=== PATIENT | male | born 1955 | race Caucasian/White ===

== ENCOUNTER 2021-10-15 13:16 | Inpatient (IN) | payer MEDICARE, SELFPAY ==
[2021-10-15] VITALS (17 sets, daily range): BP systolic 97–122; BP diastolic 67–96; PULSE 88–110; RESP 13–29; TEMP 36.6–36.9; O2SAT 93–100; BMI 21.2
--- NOTE | ~2021-10-15 | CT_ITS ---
EXAMINATION: CT brain wo con DATE: 10/15/2021 13:59 INDICATION: Altered mental state. Confusion. History of ethanol abuse. TECHNIQUE: Computed tomography (CT) of the head was performed without intravenous contrast. The mA wa s adjusted according to patient size. Iterative reconstruction technique was employed. Exam dose: 60 5.33 mGy-cm total exam DLP. COMPARISON: None FINDINGS: Bilateral vertebral artery and carotid siphon internal carotid artery calcifications are no shaq. There is mild nonspecific diminished attenuation cerebral white matter, likely due to chronic small v essel ischemic changes. No intracranial mass lesion or hemorrhage or cerebrovascular accident is detected. No midline shift o r mass effect effect. No subdural or epidural hematoma. There is mild mucoperiosteal thickening of the maxillary, frontal and sphenoid sinuses and to a great er extent the ethmoid air cells. No fracture or bone destruction of the cranial vault. IMPRESSION: Cerebral atherosclerosis and chronic small vessel ischemic changes of the cerebral white matter No acute intracranial finding Reviewed, dictated and finalized at [facility]. Reviewed, dictated and finalized at [facility].
--- NOTE | ~2021-10-15 | MR_ITS ---
EXAMINATION: MR brain/brain stem wo/w con DATE: 10/16/2021 15:11 INDICATION: Confusion. Hallucinations. TECHNIQUE: Magnetic resonance imaging (MRI) of the brain and brainstem was performed without and with 12 mL MultiHance intravenous contrast. COMPARISON: Head CT 10/15/2021 FINDINGS: There are scattered areas of nonspecific increased T2-weighted signal intensity in the cere bral white matter and barry. There is no intracranial hemorrhage, acute infarction, or abnormal intrac ranial mass lesion. The ventricles are normal in size. There is mucosal thickening in the paranasal s inuses. The orbits are normal. The mastoid air cells are normal. IMPRESSION: 1. Mild nonspecific cerebral white matter disease and pontine disease, which likely represents chroni c small vessel ischemic disease. Reviewed, dictated and finalized at [facility]. IMPRESSION: 1. Mild nonspecific cerebral white matter disease and pontine disease, which jacklyn ramos represents chronic small vessel ischemic disease.
--- NOTE | 2021-10-15 13:31 | ECG_ITS ---
Measurements Intervals [place] Rate: 99 P: 64 WV: 140 QRS: -44 QRSD: 101 T: 48 QT: 360 QTc: 464 Interpretive Statements SINUS RHYTHM LEFT AXIS DEVIATION [QRS AXIS < -30] NO PREVIOUS ECG AVAILABLE FOR COMPARISON Electronically Signed On 10-15-2021 20:37:14 CDT by Chela Rodriguez M.D.
--- NOTE | 2021-10-15 13:45 | PC.NURSE ---
Dr. Brock at bedside to assess pt.
--- NOTE | 2021-10-15 13:55 | ED.AMS ---
HPI - Altered Mental Status General Chief Complaint: Altered Mental Status Stated Complaint: confusion Time Seen by Provider: 10/15/21 13:38 History of Present Illness HPI narrative: Pt has been missing for a week and arrived home today. Pt thought someone had broken into the house a week ago and went to [facility] and called PD and filed report, no evidence of break in at house. Pt disappeared and has no recollection of where he was except maybe remembering being in a park. Pt still paranoid and thinks he is being pursued. Related Data Allergies Allergy/AdvReac Type Severity Reaction Status Date / Time No Known Allergies Allergy Unverified 01/22/12 18:33 Review of Systems Review of Systems: ROS unobtainable: Yes unobtainable due to mental status Exam Const: General: no acute distress and confusion Nutritional Appearance: well nourished Limitations: altered mental status HENMT: Head: normal to inspection Eyes: Conjunctivae: conjunctivae normal Pupils: Equal, round and reactive pupils present EOM: EOMs intact bilaterally Direct Ophthalmoscopy: no photophobia Neck: Neck: normal visual inspection and no meningeal signs Resp: Effort & Inspection: normal respiratory effort Auscultation: clear to auscultation bilaterally Cardio: Rate: regular rate Rhythm: regular rhythm GI: GI Palp: Yes Soft to palpation Auscultation: normal bowel sounds Skin: General skin exam: normal color Rashes: no rashes Wounds: no wounds Neuro: General: moves all extremities, no meningeal signs and no focal motor deficits Cranial nerves: Yes Nystagmus not present Speech: normal speech Gait exam (Neuro): Normal gait present Other: oreinted to person and place Extrem: General: normal to inspection and no clubbing, cyanosis or edema Psych: Other: calm but somewhat paranoid has no recollection of his whereabouts over last week. Course Vital Signs Vital signs: Vital Signs Temperature 98.4 F 10/15/21 13:20 Pulse Rate 110 H 10/15/21 13:20 Respiratory Rate 20 10/15/21 13:20 Blood Pressure 114/76 10/15/21 13:20 Pulse Oximetry 98 10/15/21 13:20 Oxygen Delivery Room Air 10/15/21 13:20 Temperature 98.4 F 10/15/21 13:20 Pulse Rate 107 H 10/15/21 17:02 Respiratory Rate 17 10/15/21 17:02 Blood Pressure 122/82 10/15/21 16:01 Pulse Oximetry 98 10/15/21 17:02 Oxygen Delivery Room Air 10/15/21 13:20 MDM - Altered Mental Status Lab Data Result diagrams: 10/15/21 13:53 10/15/21 13:53 Labs: Lab Results 10/15/21 10/15/21 10/15/21 Range/Units 13:53 13:53 13:53 WBC 4.3 L (4.5-10.0) K/mm3 RBC 4.86 (4.6-6.20) M/mm3 Hgb 11.1 L (14.0-18.0) g/dL Hct 38.2 L (42.0-52.0) % MCV 78.6 L (80-100) fl MCH 22.8 L (26-34) pg MCHC 29.1 L (32-36) g/dl RDW 24.3 H (11.5-14.5) % Plt Count 262 (150-375) k/mm3 MPV 10.7 H (7.4-10.4) fl Immature Gran % (Auto) 0.5 (0-0.5) % Neut % (Auto) 66.9 (45.5-73.1) % Lymph % (Auto) 18.9 (18.3-44.2) % [place] % (Auto) 11.8 H (2.6-8.5) % Eos % (Auto) 0.7 (0-4.4) % Baso % (Auto) 1.2 (0.2-1.2) % Lymph # (Auto) 0.82 L (0.9-3.2) K/mm3 [place] # (Auto) 0.5 (0.1-0.6) K/mm3 Eos # (Auto) 0.0 (0-0.3) K/mm3 Baso # (Auto) 0.1 (0.0-0.1) K/mm3 Abs Immat Gran (auto) 0.02 (0.00-0.031) K/mm3 Absolute Neuts (auto) 2.9 (1.3-6.7) K/mm3 Absolute Nucleated RBC 0.0 (0.0-0.012) K/mm3 Nucleated RBC % 0.0 (0.0-0.2) % Platelet Estimate Adequate (Adequate) % Immature Plt Fraction 6.7 (0.9-11.2) % Hypochromasia 1+ (NORMAL) Poikilocytosis 1+ (NORMAL) Anisocytosis 1+ (NORMAL) Ovalocytes 1+ (NORMAL) Stomatocytes 1+ (NORMAL) Acanthocytes (Spur) 1+ (NORMAL) PT 13.1 (11.1-14.7) Seconds INR 1.0 APTT 26.1 (22.3-36.8) SECONDS Sodium 141 (137-145) mmol/L Potassium 3.5 (3.4-5.0) mmol/L Chloride
[2021-10-15 14:14] LABS: Basophils Absolute Auto 0.1 K/mm3 (0.0-0.1); Basophils Percent Auto 1.2 % (0.2-1.2); Eosinophils Percent Auto 0.7 % (0-4.4); Hematocrit 38.2 % (42.0-52.0); Hemoglobin 11.1 g/dL (14.0-18.0); Immature Granulocyte Absolute 0.02 K/mm3 (0.00-0.031); Immature Granulocyte Percent A 0.5 % (0-0.5); Immature Platelet Fraction Pct 6.7 % (0.9-11.2); Lymphocytes Absolute Auto 0.82 K/mm3 (0.9-3.2); Lymphocytes Percent Auto 18.9 % (18.3-44.2); Mean Corpuscular HGB Conc 29.1 g/dl (32-36); Mean Corpuscular Hemoglobin 22.8 pg (26-34); Mean Corpuscular Volume 78.6 fl (80-100); Mean Platelet Volume 10.7 fl (7.4-10.4); Monocytes Absolute Auto 0.5 K/mm3 (0.1-0.6); Monocytes Percent Auto 11.8 % (2.6-8.5); Neutrophils Absolute Auto 2.9 K/mm3 (1.3-6.7); Neutrophils Percent Auto 66.9 % (45.5-73.1); Platelet Count Result 262 k/mm3 (150-375); Red Blood Count 4.86 M/mm3 (4.6-6.20); Red Cell Distribution Width 24.3 % (11.5-14.5); White Blood Count 4.3 K/mm3 (4.5-10.0)
--- NOTE | 2021-10-15 14:15 | PC.NURSE ---
Patient returned to room from CT.
[2021-10-15 14:22] LABS: Alanine Aminotransferase 65 U/L (6-50); Albumin Level 4.3 g/dL (3.5-5.1); Alkaline Phosphatase 78 U/L (38-126); Anion Gap 12 mmol/L (8-16); Aspartate Amino Transferase 93 U/L (17-59); Bilirubin,Total 0.3 mg/dL (0.2-1.3); Blood Urea Nitrogen 20 mg/dL (9-20); Calcium 8.9 mg/dL (8.4-10.2); Carbon Dioxide 24 mmol/L (22-30); Chloride 105 mmol/L (98-107); Estimated CRCL calculation 67 ml/min; Estimated Glomerular Filt Rate > 60; Glucose 132 mg/dL (65-110); Potassium 3.5 mmol/L (3.4-5.0); Sodium 141 mmol/L (137-145)
[2021-10-15 14:27] LABS: Prothrombin Time 13.1 Seconds (11.1-14.7)
[2021-10-15 14:28] LABS: Partial Thromboplastin Time 26.1 SECONDS (22.3-36.8)
[2021-10-15 14:30] LABS: Anisocytosis 1+ (NORMAL); Hypochromasia 1+ (NORMAL); Platelet Estimate Adequate (Adequate); Poikilocytosis 1+ (NORMAL)
[2021-10-15 14:31] LABS: Acanthocytes 1+ (NORMAL); Ovalocytes 1+ (NORMAL)
[2021-10-15 14:32] LABS: Stomatocytes 1+ (NORMAL)
[2021-10-15 14:44] LABS: Appearance Urine Clear (Clear); Bilirubin Urine Negative (Negative); Blood Urine Negative (Negative); Color Urine Yellow (Yellow); Glucose Urine UA Negative (Negative); Ketones Urine Negative (Negative); Leukocyte Esterase Ur Negative LEU/UL (Negative); Nitrate Urine Negative (Negative); Protein Urine 1+ mg/dL (Negative); Specific Grav Ur 1.025 (1.001-1.035); Urobilinogen Urine 0.2 mg/dL (<2.0)
[2021-10-15 14:50] LABS: Amorphous Sediment Urine Few; Bacteria Urine Trace /hpf; Mucus Urine Rare /lpf; RBC Urine 0-2 /hpf (0-2); Squamous Epithelial Cell Urine Rare /hpf (Few)
[2021-10-15 14:58] LABS: Amphetamine Screen Urine Negative (Negative); Barbiturate Screen Urine Negative (Negative); Benzodiazepines Screen Urine Negative (Negative); Cannabinoid Screen Urine Negative (Negative); Cocaine Screen Urine Negative (Negative); Methadone Screen Urine Negative (Negative); Opiate Screen Urine Negative (Negative); Phencyclidine Screen Urine Negative (Negative)
[2021-10-15 15:01] LABS: Add Urine Microscopic? YES
[2021-10-15 15:36] LABS: Ethanol 83 mg/dL (<10)
[2021-10-15 15:37] LABS: Lactic Acid Reflex 2.7 mmol/L (0.7-2.0)
[2021-10-15 15:51] LABS: Acetaminophen < 10 ug/mL (10-30); Salicylate < 1.0 mg/dL (2-20)
[2021-10-15 16:21] LABS: Thyroid Stimulating Hormone 0.798 uIU/mL (0.465-4.680)
[2021-10-15 18:20] LABS: Reflex Lactic Acid Yes or No Add Lactic
--- NOTE | 2021-10-15 18:39 | PC.NURSE ---
This patient, Keanu Palomares, was admitted to Medical Room 258-01. Patient/family oriented to hospital policies and general routines including ID bracelet, bed and alarms, visiting hours, pain management, procedures, bathroom and other care routines, personal items, smoking policy, room service/diet, and visiting hours. Information on how to activate the Rapid Response Team has been discussed. Patient/Family are encouraged to report perceived risks to care and to ask questions if they do not understand what they are told or what they should do.
[2021-10-15] MEDS: THIAMINE HCL INJ 100 MG, FOLIC ACID INJ 1 MG, MULTIVITAMINS-12 INJ VIAL 1 5 ML, MULTIVI... IV CONT (18:54)
[2021-10-15 19:38] LABS: Lactic Acid 1.3 mmol/L (0.7-2.0)
--- NOTE | 2021-10-15 20:20 | PM.IMHP ---
H&P: HPI History of Present Illness Date/Time: 10/15/21 20:20 Chief Complaint: Paranoid and anxious Narrative: 66-year-old male with past medical history of COPD, depression and chronic alcoholism with binge drinking who presented to the ER from home after being lost for 1 week. The patient's last known well was on the when his brother and [id number] when out of town for vacation. Then 1 week ago the patient had called the police from local gas station stating that he was scared and thought someone had broken into the house. The police went to investigate the house and there is no evidence of disturbance. The patient was not located at the house and was not heard from until he was located by police today. Police brought the patient back to his home. When he came into the home the patient was quite anxious and upset. He was afraid for his family safety in the home because he was convinced that someone had broken into the home. The patient cannot provide much of this history form E and most of information comes from the ER reports and his daughter at bedside. She reports that he usually does not have difficulties with his memory. He does sometimes get forgetful whenever he is binge drinking. She states that he will sometimes go months without drinking and then he will go off on a Todd. When he was found today he had a pt of alcohol on him and only small amount was missing from the bottle. The people at the gas station had reported the patient did not appear intoxicated when he called police about the possible break in. The patient has had an intermittent history of depression in the past. He does not report feeling overtly depressed at this time but does have a flat affect. He denies any suicidal homicidal ideation. He is upset that he cannot remember recent activities. Currently he is alert oriented to person the fact that he is in the hospital and the month date and year. He does know the name of the current president. He thought that he was in the town of [place]. He has voiced concerns that he is still being followed or that individuals are still going to come to his home to hurt his family members or himself. The patient has little to no recollection of what the dylan and when he was gone. He thinks that he may have been in a park. The patient does have frequent coughing but denies any increased shortness of breath. His cough is unchanged from baseline. His daughters concerned about his cough but the patient feels that is unchanged. He is not having any active wheezing. His daughter confirmed that he did receive the 1st 2 doses of his COVID vaccine series. He denies any difficulty urinating. He has itching but has not had a shower in 7 days. He denies any nausea or vomiting. He reports feeling hungry. Review of Systems Review of Systems: 12 systems were reviewed with pertinent positives and negatives per HPI. Except as documented in the HPI, all other systems were reviewed and are negative. [facility] Past Medical History Medical History (Updated 10/16/21 @ 07:27 by Dorita Mcadams DO) Alcohol abuse, episodic COPD (chronic obstructive pulmonary disease) Depression Peripheral neuropathy Tobacco use disorder, continuous Surgical History Surgical History (Updated 10/16/21 @ 07:09 by Dorita Mcadams DO) H/O inguinal hernia repair History of tonsillectomy Family History Family History Father Healthy adult Still alive at 90 years old Mother Healthy adult Relatively healthy at 86 years old Social History Social History (Updated 10/16/21 @ 07:21 by Dorita Mcadams DO) Social History: He has lived with his brother and [id number] since January of 2021. He is independent in her activities of daily living. 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 He has a history of alcoholism but usually does more binge drinking than daily drinking. He has 1 d
[2021-10-15] MEDS: SODIUM CHLORIDE 0.9% IV 1,000 ML 999 ML IV CONT (20:33)
[2021-10-15 20:46] LABS: Hematocrit 36.1 % (42.0-52.0); Hemoglobin 10.5 g/dL (14.0-18.0); Immature Platelet Fraction Pct 7.1 % (0.9-11.2); Mean Corpuscular HGB Conc 29.1 g/dl (32-36); Mean Corpuscular Hemoglobin 22.6 pg (26-34); Mean Corpuscular Volume 77.6 fl (80-100); Mean Platelet Volume 10.2 fl (7.4-10.4); Platelet Count Result 246 k/mm3 (150-375); Red Blood Count 4.65 M/mm3 (4.6-6.20); White Blood Count 4.3 K/mm3 (4.5-10.0)
[2021-10-15] MEDS: SODIUM CHLORIDE 0.9% IV 1,000 ML 100 ML IV CONT (21:40)
[2021-10-15] MEDS: THIAMINE HCL INJ 500 MG in SODIUM CHLORIDE 0.9% IV 100 ML 420 MG IVPB (21:52)
[2021-10-15] MEDS: GABAPENTIN 300 MG CAPSULE 600 MG PO (21:53)
[2021-10-15] MEDS: MELATONIN 5 MG TABLET PO (22:09)
[2021-10-16] VITALS (8 sets, daily range): BP systolic 99–147; BP diastolic 7–76; PULSE 66–123; RESP 16–20; TEMP 36.8–36.9; O2SAT 94–100
[2021-10-16] MEDS: THIAMINE HCL INJ 500 MG in SODIUM CHLORIDE 0.9% IV 100 ML 400 MG IVPB ×3 (05:50→20:24)
[2021-10-16 06:35] LABS: Alanine Aminotransferase 52 U/L (6-50); Albumin Level 3.1 g/dL (3.5-5.1); Alkaline Phosphatase 64 U/L (38-126); Anion Gap 6 mmol/L (8-16); Aspartate Amino Transferase 70 U/L (17-59); Bilirubin,Total 0.8 mg/dL (0.2-1.3); Blood Urea Nitrogen 16 mg/dL (9-20); Calcium 7.9 mg/dL (8.4-10.2); Carbon Dioxide 24 mmol/L (22-30); Chloride 108 mmol/L (98-107); Estimated CRCL calculation 79 ml/min; Estimated Glomerular Filt Rate > 60; Glucose 89 mg/dL (65-110); Phosphorus 3.7 mg/dL (2.5-4.5); Potassium 3.6 mmol/L (3.4-5.0); Sodium 138 mmol/L (137-145)
[2021-10-16 07:34] LABS: Folic Acid 5.6 ng/mL (2.76->20); Vitamin B12 > 1000.0 pg/mL (239-931)
[2021-10-16] MEDS: SODIUM CHLORIDE 0.9% IV 1,000 ML 100 ML IV CONT ×2 (08:27→20:24)
[2021-10-16] MEDS: GABAPENTIN 300 MG CAPSULE 600 MG PO ×3 (08:28→17:09)
[2021-10-16] MEDS: FLUTICASONE/SALMETEROL 115-21 MCG INHALER 1 PUFF 2 PUFF INHALATION ×2 (08:50→19:49)
[2021-10-16 08:59] LABS: Transferrin 191 mg/dL (206-381)
[2021-10-16 09:02] LABS: Iron 86 ug/dL (49-181)
[2021-10-16 09:05] LABS: Magnesium 1.4 mg/dL (1.6-2.3)
[2021-10-16] MEDS: ENOXAPARIN 40 MG/0.4 ML SYRINGE SUB-Q (09:11)
[2021-10-16 09:14] LABS: Percent Iron Saturation 31 % (20-50)
[2021-10-16 09:49] LABS: Ammonia < 9 umol/L (9-30)
[2021-10-16] MEDS: MAGNESIUM SULF 2 GM/WATER 50ML 2 GM/50 ML BAG IVPB (11:45)
--- NOTE | 2021-10-16 13:36 | PM.IMPN ---
Progress Note: A&P Assessment and Plan (1) Acute paranoia: Code(s): F22 - Delusional disorders Status: Acute (2) Memory loss, short term: Code(s): R41.3 - Other amnesia Status: Acute (3) Alcoholic intoxication: Code(s): F10.929 - Alcohol use, unspecified with intoxication, unspecified Status: Acute (4) Elevated liver transaminase level: Code(s): R74.01 - Elevation of levels of liver transaminase levels Status: Acute (5) COPD (chronic obstructive pulmonary disease): Code(s): J44.9 - Chronic obstructive pulmonary disease, unspecified Status: Acute (6) Microcytic anemia: Code(s): D50.9 - Iron deficiency anemia, unspecified Status: Acute Plan The patient has paranoia and appears mildly confused. I suspect the patient symptoms could be due to Wernicke encephalopathy previously undiagnosed dementia or acute paranoia, depression with psychosis and confusion due to acute alcohol intoxication. Unfortunately is probably more of a mixed picture. Will treat the patient with high-dose thiamin for S 72 hours and continue IV fluid hydration. Will check an ammonia level with a.m. labs. If no improvement in patient's condition patient may benefit from evaluation by Psychiatry and may be resuming some antidepressants as he has not been on antidepressants in sometime according to the daughter. The patient does have some elevated transaminases in does have a mildly elevated alcohol level. I suspect he may have been drinking heavier throughout his episode of disappearance and this is likely contributing to his confusion. He is elevated LFTs are likely due to recent alcohol ingestion. Will check an acute hepatitis panel to rule out viral infection. Patient does have COPD but does not appear to be acutely decompensated. Daughter is requesting inhalers. Will place patient on p.r.n. nebulizer treatments will start the patient on a long-acting beta agonist with inhaled corticosteroid. Will also provide incentive spirometer. Will monitor for potential signs of alcohol withdrawal with CIWA scores q.4 hours. Thiamin supplementation as discussed above. Patient does have some microcytic anemia and leukopenia. Leukopenia is likely due to his alcohol use. Will check B12, folic acid and ferritin, TIBC and transferrin levels with a.m. labs. 10/16/2021 interval history: patient is somewhat remains confused still does not remember exactly what happened while he was missing, patient folic acid vitamin B12 are normal, ammonia level less than 9, patient does have an iron deficiency anemia patient iron is low normal, will give 1 time 300 mg Venofer, patient states his symptoms are stemming from chronic alcohol abuse however family is concerned for possible infection, to further evaluate will do the MRI of the brain and blood culture, will continue to monitor patient electrolytes, will have a PT OT evaluate the patient. Additional Plan Patient has been admitted as observation status. Subjective Date/time seen: 10/16/21 13:36 Chief Complaint: Paranoid and anxious Narrative: 66-year-old male with past medical history of COPD, depression and chronic alcoholism with binge drinking who presented to the ER from home after being lost for 1 week.? The patient's last known well was on the when his brother and [id number] when out of town for vacation.? Then 1 week ago the patient had called the police from local [employer] stating that he was scared and thought someone had broken into the house.? The police went to investigate the house and there is no evidence of disturbance.? The patient was not located at the house and was not heard from until he was located by police today.? Police brought the patient back to his home.? When he came into the home the patient was quite anxious and upset.? He was afraid for his family safety in the home because he was convinced that someone had br
[2021-10-16] MEDS: ALBUTEROL SULFATE NEB 2.5 MG/3 ML INH INHALATION (19:49)
[2021-10-16] MEDS: IPRATROPIUM BR 0.02% INH SOLN 0.5 MG/2.5 ML VIAL INHALATION (19:49)
[2021-10-16] MEDS: MELATONIN 5 MG TABLET PO (20:24)
[2021-10-17] VITALS (7 sets, daily range): BP systolic 109–118; BP diastolic 60–82; PULSE 67–101; RESP 16–20; TEMP 36.9–37.2; O2SAT 95–100
[2021-10-17] MEDS: THIAMINE HCL INJ 500 MG in SODIUM CHLORIDE 0.9% IV 100 ML 400 MG IVPB (05:33)
[2021-10-17] MEDS: SODIUM CHLORIDE 0.9% IV 1,000 ML 100 ML IV CONT ×2 (05:37→16:58)
[2021-10-17 06:03] LABS: Hematocrit 30.7 % (42.0-52.0); Hemoglobin 8.7 g/dL (14.0-18.0); Immature Platelet Fraction Pct 6.9 % (0.9-11.2); Mean Corpuscular HGB Conc 28.3 g/dl (32-36); Mean Corpuscular Hemoglobin 22.8 pg (26-34); Mean Corpuscular Volume 80.4 fl (80-100); Mean Platelet Volume 10.1 fl (7.4-10.4); Platelet Count Result 164 k/mm3 (150-375); Red Blood Count 3.82 M/mm3 (4.6-6.20); Red Cell Distribution Width 23.4 % (11.5-14.5)
[2021-10-17 06:18] LABS: Anion Gap 3 mmol/L (8-16); Blood Urea Nitrogen 8 mg/dL (9-20); Calcium 7.8 mg/dL (8.4-10.2); Carbon Dioxide 25 mmol/L (22-30); Chloride 110 mmol/L (98-107); Estimated CRCL calculation 79 ml/min; Estimated Glomerular Filt Rate > 60; Glucose 98 mg/dL (65-110); Magnesium 1.7 mg/dL (1.6-2.3); Potassium 3.5 mmol/L (3.4-5.0); Sodium 138 mmol/L (137-145)
[2021-10-17] MEDS: POTASSIUM CHLORIDE 20 MEQ TABLET 40 MEQ PO (08:46)
[2021-10-17] MEDS: GABAPENTIN 300 MG CAPSULE 600 MG PO ×3 (08:46→16:59)
[2021-10-17] MEDS: ENOXAPARIN 40 MG/0.4 ML SYRINGE SUB-Q (08:46)
[2021-10-17] MEDS: MAGNESIUM OXIDE 400 MG TABLET PO (08:47)
[2021-10-17] MEDS: FLUTICASONE/SALMETEROL 115-21 MCG INHALER 1 PUFF 2 PUFF INHALATION ×2 (09:04→20:10)
[2021-10-17] MEDS: THIAMINE HCL INJ 500 MG in SODIUM CHLORIDE 0.9% IV 100 ML 420 MG IVPB ×2 (13:55→20:50)
[2021-10-17 18:13] LABS: IFOB Positive Control Positive; Immunochemical Fecal Occult Bl Negative (N)
[2021-10-17] MEDS: IPRATROPIUM BR 0.02% INH SOLN 0.5 MG/2.5 ML VIAL INHALATION (20:10)
[2021-10-17] MEDS: ALBUTEROL SULFATE NEB 2.5 MG/3 ML INH INHALATION (20:10)
[2021-10-17] MEDS: MELATONIN 5 MG TABLET PO (20:50)
[2021-10-17] MEDS: guaiFENesin 12 HR 600 MG TABCR PO (20:50)
[2021-10-17] MEDS: BENZONATATE 100 MG CAPSULE 200 MG PO (20:50)
[2021-10-18 05:34] VITALS: BP 112/82; PULSE 67; RESP 20; TEMP 36.9; O2SAT 96
[2021-10-18] MEDS: THIAMINE HCL INJ 500 MG in SODIUM CHLORIDE 0.9% IV 100 ML 420 MG IVPB ×2 (05:39→14:06)
[2021-10-18 05:55] LABS: Hemoglobin 9.4 g/dL (14.0-18.0); Mean Corpuscular HGB Conc 28.5 g/dl (32-36); Mean Corpuscular Hemoglobin 22.7 pg (26-34); Mean Corpuscular Volume 79.7 fl (80-100); Mean Platelet Volume 10.5 fl (7.4-10.4); Platelet Count Result 169 k/mm3 (150-375); Red Blood Count 4.14 M/mm3 (4.6-6.20); Red Cell Distribution Width 23.9 % (11.5-14.5); White Blood Count 4.7 K/mm3 (4.5-10.0)
[2021-10-18 06:04] LABS: Anion Gap 4 mmol/L (8-16); Blood Urea Nitrogen 9 mg/dL (9-20); Calcium 8.6 mg/dL (8.4-10.2); Carbon Dioxide 27 mmol/L (22-30); Chloride 107 mmol/L (98-107); Estimated CRCL calculation 79 ml/min; Estimated Glomerular Filt Rate > 60; Glucose 98 mg/dL (65-110); Magnesium 1.9 mg/dL (1.6-2.3); Potassium 4.3 mmol/L (3.4-5.0); Sodium 138 mmol/L (137-145)
[2021-10-18 07:42] VITALS: PULSE 77; O2SAT 96
[2021-10-18] MEDS: FLUTICASONE/SALMETEROL 115-21 MCG INHALER 1 PUFF 2 PUFF INHALATION ×2 (07:42→20:27)
[2021-10-18] MEDS: ENOXAPARIN 40 MG/0.4 ML SYRINGE SUB-Q (08:19)
[2021-10-18] MEDS: GABAPENTIN 300 MG CAPSULE 600 MG PO ×3 (08:19→16:42)
[2021-10-18] MEDS: NICOTINE (*PBKC) 21 MG PATCH 1 PATCH TRANSDERM (08:20)
[2021-10-18] MEDS: MAGNESIUM OXIDE 400 MG TABLET PO (08:21)
[2021-10-18] MEDS: guaiFENesin 12 HR 600 MG TABCR PO ×2 (08:21→20:53)
[2021-10-18] MEDS: BENZONATATE 100 MG CAPSULE 200 MG PO ×3 (08:21→16:41)
--- NOTE | 2021-10-18 11:11 | PM.IMPN ---
Progress Note: A&P Assessment and Plan (1) Acute paranoia: Code(s): F22 - Delusional disorders Status: Acute (2) Memory loss, short term: Code(s): R41.3 - Other amnesia Status: Acute (3) Alcoholic intoxication: Code(s): F10.929 - Alcohol use, unspecified with intoxication, unspecified Status: Acute (4) Elevated liver transaminase level: Code(s): R74.01 - Elevation of levels of liver transaminase levels Status: Acute (5) COPD (chronic obstructive pulmonary disease): Code(s): J44.9 - Chronic obstructive pulmonary disease, unspecified Status: Acute (6) Microcytic anemia: Code(s): D50.9 - Iron deficiency anemia, unspecified Status: Acute Plan The patient has paranoia and appears mildly confused. I suspect the patient symptoms could be due to Wernicke encephalopathy previously undiagnosed dementia or acute paranoia, depression with psychosis and confusion due to acute alcohol intoxication. Unfortunately is probably more of a mixed picture. Will treat the patient with high-dose thiamin for S 72 hours and continue IV fluid hydration. Will check an ammonia level with a.m. labs. If no improvement in patient's condition patient may benefit from evaluation by Psychiatry and may be resuming some antidepressants as he has not been on antidepressants in sometime according to the daughter. The patient does have some elevated transaminases in does have a mildly elevated alcohol level. I suspect he may have been drinking heavier throughout his episode of disappearance and this is likely contributing to his confusion. He is elevated LFTs are likely due to recent alcohol ingestion. Will check an acute hepatitis panel to rule out viral infection. Patient does have COPD but does not appear to be acutely decompensated. Daughter is requesting inhalers. Will place patient on p.r.n. nebulizer treatments will start the patient on a long-acting beta agonist with inhaled corticosteroid. Will also provide incentive spirometer. Will monitor for potential signs of alcohol withdrawal with CIWA scores q.4 hours. Thiamin supplementation as discussed above. Patient does have some microcytic anemia and leukopenia. Leukopenia is likely due to his alcohol use. Will check B12, folic acid and ferritin, TIBC and transferrin levels with a.m. labs. 10/16/2021 interval history: patient is somewhat remains confused still does not remember exactly what happened while he was missing, patient folic acid vitamin B12 are normal, ammonia level less than 9, patient does have an iron deficiency anemia patient iron is low normal, will give 1 time 300 mg Venofer, patient states his symptoms are stemming from chronic alcohol abuse however family is concerned for possible infection, to further evaluate will do the MRI of the brain and blood culture, will continue to monitor patient electrolytes, will have a PT OT evaluate the patient. 10/17/2021 interval history: even today patient is somewhat remains confused still does not remember exactly what happened while he was missing, patient folic acid vitamin B12 are normal, ammonia level less than 9, patient does have an iron deficiency anemia patient iron is low normal, gave 1 time 300 mg Venofer, patient states his symptoms are stemming from chronic alcohol abuse however family is concerned for possible infection, to further evaluate patient had MRI of the brain which is negative for any acute injury, and blood culture, so far no growth will continue to monitor patient electrolytes, will have a PT OT evaluate the patient. 10/18/2021 interval history: even today patient is somewhat remains confused still does not remember exactly what happened while he was missing, patient folic acid vitamin B12 are normal, ammonia level less than 9, patient does have an iron deficiency anemia patient iron is low normal, gave 1 time 300 mg Venofer, patient states his symptoms are
[2021-10-18 14:10] VITALS: BP 99/74; PULSE 96; RESP 16; TEMP 36.7; O2SAT 100
[2021-10-18 20:32] VITALS: O2SAT 95
[2021-10-18] MEDS: MELATONIN 5 MG TABLET PO (20:53)
[2021-10-18] MEDS: CALCIUM CARBONATE (TUMS) 500 MG (200 MG ELEMENTAL) PO (20:55)
[2021-10-18 21:13] VITALS: BP 114/80; PULSE 90; RESP 18; TEMP 36.6; O2SAT 100
[2021-10-19 05:23] VITALS: BP 124/76; PULSE 74; RESP 20; TEMP 36.6; O2SAT 98
[2021-10-19 05:49] LABS: Hematocrit 36.5 % (42.0-52.0); Hemoglobin 10.3 g/dL (14.0-18.0); Immature Platelet Fraction Pct 8.7 % (0.9-11.2); Mean Corpuscular HGB Conc 28.2 g/dl (32-36); Mean Corpuscular Volume 81.7 fl (80-100); Mean Platelet Volume 10.3 fl (7.4-10.4); Platelet Count Result 170 k/mm3 (150-375); Red Blood Count 4.47 M/mm3 (4.6-6.20); Red Cell Distribution Width 24.1 % (11.5-14.5); White Blood Count 4.1 K/mm3 (4.5-10.0)
[2021-10-19 06:00] LABS: Anion Gap 5 mmol/L (8-16); Blood Urea Nitrogen 10 mg/dL (9-20); Calcium 8.7 mg/dL (8.4-10.2); Carbon Dioxide 28 mmol/L (22-30); Chloride 104 mmol/L (98-107); Estimated CRCL calculation 79 ml/min; Estimated Glomerular Filt Rate > 60; Glucose 122 mg/dL (65-110); Magnesium 1.8 mg/dL (1.6-2.3); Potassium 3.7 mmol/L (3.4-5.0); Sodium 137 mmol/L (137-145)
[2021-10-19] MEDS: FLUTICASONE/SALMETEROL 115-21 MCG INHALER 1 PUFF 2 PUFF INHALATION (08:55)
[2021-10-19] MEDS: IPRATROPIUM BR 0.02% INH SOLN 0.5 MG/2.5 ML VIAL (08:56)
[2021-10-19] MEDS: ALBUTEROL SULFATE NEB 2.5 MG/0.5 ML INH (08:56)
[2021-10-19 08:57] VITALS: PULSE 101; RESP 12
[2021-10-19 09:06] VITALS: PULSE 91; RESP 12
[2021-10-19] MEDS: NICOTINE (*PBKC) 21 MG PATCH 1 PATCH TRANSDERM (09:19)
[2021-10-19] MEDS: ENOXAPARIN 40 MG/0.4 ML SYRINGE SUB-Q (09:19)
[2021-10-19] MEDS: GABAPENTIN 300 MG CAPSULE 600 MG PO ×3 (09:20→16:14)
[2021-10-19] MEDS: MAGNESIUM OXIDE 400 MG TABLET PO (09:20)
[2021-10-19] MEDS: BENZONATATE 100 MG CAPSULE 200 MG PO ×3 (09:20→16:13)
[2021-10-19] MEDS: guaiFENesin 12 HR 600 MG TABCR PO (09:21)
--- NOTE | 2021-10-19 11:30 | PCPTNOTE ---
Physical therapy orders cancelled. Per chart review Pt is independent with his mobility. He has been ambulatory in room and unit without assist per nursing note. Spoke with Dr. Read, verbally agreed to cancel orders at this time.
--- NOTE | 2021-10-19 11:34 | PCOTNOTE ---
Canceling orders per hospitalist recommendation (via physical therapist report), as pt. has been independent in room, consistent with prior level of function
[2021-10-19] MEDS: ALBUTEROL SULFATE NEB 2.5 MG/3 ML INH INHALATION (11:55)
[2021-10-19 11:56] VITALS: PULSE 102; RESP 14
[2021-10-19] MEDS: IPRATROPIUM BR 0.02% INH SOLN 0.5 MG/2.5 ML VIAL INHALATION (11:56)
[2021-10-19 12:02] VITALS: PULSE 94; RESP 12
[2021-10-19 14:00] VITALS: BP 110/70; PULSE 99; RESP 14; TEMP 36.8; O2SAT 95
== END 2021-10-19 16:40 | disposition home or self-care (01) | DRG 641 ==
LOC: ANHED 16:43 → ANH2MED 18:36
PROVIDERS: Emergency Medicine; Internal Medicine; Admitting Provider Internal Medicine; Emergency Provider Emergency Medicine; PCP Nurse Practitioner Family; Visit Provider Family Medicine
DX: E51.2 Wernicke's encephalopathy (principal); R41.3 Other amnesia; F10.929 Alcohol use, unspecified with intoxication, unspecified; R74.01 Elevation of levels of liver transaminase levels; J44.9 Chronic obstructive pulmonary disease, unspecified; D50.9 Iron deficiency anemia, unspecified; F17.210 Nicotine dependence, cigarettes, uncomplicated; F32.9 Major depressive disorder, single episode, unspecified; G62.9 Polyneuropathy, unspecified; Z79.899 Other long term (current) drug therapy
CPT/HCPCS: 36415; 70450; 70553; 80048; 80053; 80076; 80307; 81001; 82140; 82274; 82607; 82728; 82746; 83540; 83550; 83605; 83735; 84100; 84443; 84466; 85025; 85027; 85055; 85610; 85730; 87040; 87077; 87086; 87186; 93005; 94640; 96361; 96365; 96366; 96367; 96372; 99285; A9270; A9577; G0378; J1650; J1756; J3370; J3411; J3475; J7030